=== PATIENT | female | born 1955 ===

== ENCOUNTER → 2021-07-28 | Outpatient (CLI) | payer BC | END | disposition home or self-care (01) | LOC: LAB SHORT 15:43 → LAB 15:43 | DX: D48.5 Neoplasm of uncertain behavior of skin (principal) | CPT/HCPCS: 88305 ==

== ENCOUNTER 2023-03-30 09:54 | Day surgery (SDC) | payer MEDICARE, OTHER | END 2023-04-02 23:18 | disposition home or self-care (01) | LOC: MOI MAM 09:54 → MOI US 10:15 → MOI MAM 04-02 23:18 | DX: C50.211 Malignant neoplasm of upper-inner quadrant of right female breast (principal) | CPT/HCPCS: 19083; 77065; 88305; 88360; A4648 ==